=== PATIENT | male | born 1960 | race Two or more races ===

== ENCOUNTER 2023-10-05 09:24 | Emergency (ER) | payer SELFPAY ==
[~2023-10-05] VITALS: Ht 182.9 cm; Wt 120.0 kg
[2023-10-05 09:26] VITALS: BP 161/65; O2SAT 99
[2023-10-05 09:44] VITALS: PULSE 103; RESP 18; TEMP 99.6
== END 2023-10-05 10:15 | disposition left against medical advice (07) ==
LOC: ER 09:24
DX: R68.89 Other general symptoms and signs (principal); Z53.21 Procedure and treatment not carried out due to patient leaving prior to being seen by health care provider
CPT/HCPCS: 99281